=== PATIENT | female | born 1975 | race Caucasian/White ===

== ENCOUNTER 2017-06-24 16:49 | Emergency (ER) | payer OTHER ==
[~2017-06-24] VITALS: Wt 89.4 kg
[~2017-06-24 16:49] MED LIST: AMBIEN10 M1 PO; AMOXICILLIN500 M2 PO; AMOXIL875 MG PO; AUGMENTIN 500500 M1 PO; BENADRYL ALLERG25 M5 PO; CEPHALEXIN500 M1 PO; CLINDAMYCIN HC300 MG PO; COMPAZINE10 MG PO; FLEXERIL10 MG PO; GOOD NEIGHBOR L10 MG PO; IBU800 MG PO; KEFLEX500 MG PO; LEVOFLOXACIN500 MG PO; MEDROL DOSEPAK4 MG PO; NAPROSYN500 MG PO; NEURONTIN100 MG PO; NEXIUM40 MG PO; NORCO 7.5-3251 EACH PO; OGEN PO; PRAVACHOL40 MG PO; PREDNICOT20 MG PO; PREDNISONE10 MG PO; PREDNISONE50 MG PO; PREVACID30 M1 PO; PROTONIX40 MG PO; SYMBICORT1 AE1 INH; SYNTHROID0.025 MG PO; SYNTHROID25 MCG PO; TESSALON PERLE200 MG PO; TRAMADOL50 MG PO; TRAZODONE50 MG PO; ULTRAM50 MG PO; VIBRA-TAB100 MG PO; VICODIN 500 MG-1 TAB PO; XOPENEX HF0.045 MG/A IH; ZITHROMAX Z PA250 MG PO; ZITHROMAX Z-PA250 MG PO; ZOFRAN4 MG PO; [UNRECOGNIZED DRUG - REMARK]; [UNRECOGNIZED DRUG - REMARK]; [UNRECOGNIZED DRUG - REMARK]; [UNRECOGNIZED DRUG - REMARK]
[2017-06-24] MEDS ORDERED: PROAIR HFA8.5 GM INH (18:42)
== END 2017-06-24 18:45 | disposition left against medical advice (07) ==
LOC: ED 16:49
DX: M79.671 Pain in right foot (principal); K21.9 Gastro-esophageal reflux disease without esophagitis; Z79.899 Other long term (current) drug therapy

== ENCOUNTER 2017-09-01 04:33 | Emergency (ER) | payer OTHER ==
[~2017-09-01] VITALS: Ht 167.6 cm; Wt 84.8 kg
[~2017-09-01 04:33] MED LIST changes: -PREVACID30 M1 PO; +PREVACID30 M3 PO; +PROAIR HFA8.5 GM INH
[2017-09-01] MEDS ORDERED: PYRIDIUM200 M1 PO ×2 (05:04→05:37)
[2017-09-01] MEDS ORDERED: AMOXICILLIN500 M2 PO ×2 (05:04→05:37)
[2017-09-01 05:06] LABS: BILIRUBIN NEGATIVE (NEGATIVE); BLOOD 3+ (NEGATIVE); CLARITY SL CLOUDY (CLEAR); COLOR YELLOW (YELLOW); GLUCOSE NEGATIVE (NEGATIVE); KETONE TRACE (NEGATIVE); LEUKO ESTERASE TRACE (NEGATIVE); NITRITE POSITIVE (NEGATIVE); SPECIFIC GRAVITY >= 1.030 (1.005-1.030); UROBILINOGEN 0.2 E.U./dl (0.2-1.0)
[2017-09-01 05:13] LABS: BACTERIA 2+; EPITHELIAL CELLS 0-2; RBC 21-30 rbc/hpf (0-2); WBC 16-20 wbc/hpf (0-5)
[2017-09-14] MEDS ORDERED: PRAVASTATIN PO (09:22)
[2017-09-14] MEDS ORDERED: AMBIEN5 MG PO (09:23)
[2017-09-14] MEDS ORDERED: SYNTHROID PO (09:23)
== END 2017-09-01 05:42 | disposition home or self-care (01) ==
LOC: ED 04:33
PROVIDERS: Emergency Medicine Emergency Medical Services
DX: N39.0 Urinary tract infection, site not specified (principal); K21.9 Gastro-esophageal reflux disease without esophagitis; F17.200 Nicotine dependence, unspecified, uncomplicated; Z90.710 Acquired absence of both cervix and uterus; Z79.899 Other long term (current) drug therapy

== ENCOUNTER → 2017-09-14 | Outpatient (CLI) | payer OTHER ==
[~2017-09-14] MED LIST changes: +AMBIEN5 MG PO; +PRAVASTATIN PO; +PYRIDIUM200 M1 PO; +SYNTHROID PO
--- NOTE | ~2017-09-14 | ST ---
[place], [place] EXERCISE STRESS TEST REPORT NAME: [facility] [id number] UNIT #: [id number] ROOM: DOCTOR: RENETTA MCGEE MD BIRTHDATE: [birth year] DOS: 09/14/2017 EXERCISE STRESS TEST Referred by Dr. Jaz Gibbs. INDICATIONS: Atypical chest pain, dyspnea, family history of coronary artery disease. PROCEDURE: The patient walked on a full Louis protocol stress test for 6 minutes and stopped for fatigue. She did not reproduce her chest pain. She achieved a maximum heart rate of 154, which represented 87% of her maximum predicted heart rate at a workload of 7 mets. Her resting heart rate of 50 emily to 154. The resting blood pressure of 120/74, increased to 160/72. She had no diagnostic electrocardiographic changes or arrhythmias. Recovery phase was normal. IMPRESSION: 1. Adequate exercise capacity, which is somewhat limited for the patient's age. Exercise terminated due to fatigue. The patient did not have any chest pain or diagnostic electrocardiographic changes. 2. Che treadmill score 6 consistent with low risk for hard cardiac events. 3. Somewhat limited exercise capacity for the patient's age, probably related to underlying lung disease, deconditioning, etc. RENETTA MCGEE MD CM:STRESS:EXERCISE STRESS TEST REPORT [id number] RENETTA MCGEE MD
[2017-09-14 09:45] LABS: BASO % 0.8 % (0.0-1.0); EOS # 0.1 10*3/uL (0.0-0.4); EOS % 2.7 % (1.0-4.0); HEMATOCRIT 40.7 % (37.0-47.0); HEMOGLOBIN 13.8 g/dl (12.0-16.0); LYMPH # 1.5 10*3/uL (1.3-4.4); LYMPH % 29.1 % (27.0-41.0); MEAN CORPUSCULAR HGB 30.5 pg (27.0-31.0); MEAN CORPUSCULAR HGB CONC 33.9 g/dl (33.0-37.0); MEAN PLATELET VOLUME 9.5 fl (9.6-12.3); MONO # 0.5 10*3/uL (0.1-1.0); MONO % 8.6 % (3.0-9.0); NEUT # 3.1 10*3/uL (2.3-7.9); NEUT % 58.6 % (47.0-73.0); PLATELET COUNT AUTOMATED 237 10*3/uL (130-400); RED BLOOD COUNT 4.52 10*6/uL (4.10-5.10); RED CELL DISTRI WIDTH 12.1 % (0-14.5); WHITE BLOOD COUNT 5.2 10*3/uL (4.8-10.8)
[2017-09-14 10:11] LABS: ALBUMIN 3.8 gm/dl (3.1-4.5); ALKALINE PHOSPHATASE 58 U/L (45-117); BUN 8 mg/dl (7-24); CHLORIDE 107 mmol/L (98-107); CHOLESTEROL 168 mg/dL (<200); HDL CHOLESTEROL 57 mg/dl (40-60); LDL CHOLESTEROL 90 mg/dL (9-159); SGOT/AST 7 IU/L (3-35); SGPT/ALT 15 U/L (12-78); SODIUM 143 mmol/L (136-145); TOTAL PROTEIN 6.8 gm/dL (6.4-8.2); TRIGLYCERIDES 103 mg/dl (<150); VLDL CHOLESTEROL 21 mg/dL (6-40)
== END | disposition home or self-care (01) ==
LOC: CARD 09-07 09:30 → LAB 01:27 → CARD 09:30
PROVIDERS: Internal Medicine
DX: I20.9 Angina pectoris, unspecified (principal); E78.2 Mixed hyperlipidemia; E03.9 Hypothyroidism, unspecified

== ENCOUNTER 2017-10-20 07:43 | Emergency (ER) | payer OTHER ==
[~2017-10-20] VITALS: Wt 68.0 kg
== END 2017-10-20 09:45 | disposition home or self-care (01) ==
LOC: ED 07:43
DX: S29.9XXA Unspecified injury of thorax, initial encounter (principal); K21.9 Gastro-esophageal reflux disease without esophagitis; Z79.890 Hormone replacement therapy; Z79.899 Other long term (current) drug therapy; Z90.710 Acquired absence of both cervix and uterus; Z90.49 Acquired absence of other specified parts of digestive tract; X50.9XXA Other and unspecified overexertion or strenuous movements or postures, initial encounter; Y93.89 Activity, other specified; Y92.89 Other specified places as the place of occurrence of the external cause; Y99.8 Other external cause status

== ENCOUNTER 2017-10-26 12:09 | Emergency (ER) | payer OTHER ==
[~2017-10-26] VITALS: Ht 165.1 cm; Wt 81.6 kg
[2017-10-26] MEDS ORDERED: Motrin,Rufen800 MG PO (14:29)
[2017-10-26] MEDS ORDERED: PERCOCET 5-3251 EACH PO (14:30)
== END 2017-10-26 14:34 | disposition home or self-care (01) ==
LOC: ED 12:09
DX: S20.212A Contusion of left front wall of thorax, initial encounter (principal); K21.9 Gastro-esophageal reflux disease without esophagitis; F17.200 Nicotine dependence, unspecified, uncomplicated; Z79.890 Hormone replacement therapy; Z90.710 Acquired absence of both cervix and uterus; Z90.49 Acquired absence of other specified parts of digestive tract; X50.1XXA Overexertion from prolonged static or awkward postures, initial encounter; Y93.89 Activity, other specified; Y92.89 Other specified places as the place of occurrence of the external cause; Y99.8 Other external cause status

== ENCOUNTER 2017-11-20 10:58 | Emergency (ER) | payer OTHER ==
[~2017-11-20] VITALS: Wt 86.2 kg
[~2017-11-20 10:58] MED LIST changes: +Motrin,Rufen800 MG PO; +PERCOCET 5-3251 EACH PO
[2017-11-20] MEDS ORDERED: Zofran4 MG SL ×2 (11:23→11:32)
[2017-11-20] MEDS ORDERED: PENICILLIN VK500 MG PO ×2 (11:23→11:32)
[2017-11-20] MEDS ORDERED: NAPROSYN500 MG PO ×2 (11:23→11:32)
== END 2017-11-20 11:44 | disposition home or self-care (01) ==
LOC: ED 10:58
DX: M27.3 Alveolitis of jaws (principal); Z79.899 Other long term (current) drug therapy; Z90.710 Acquired absence of both cervix and uterus; Z90.49 Acquired absence of other specified parts of digestive tract

== ENCOUNTER 2018-02-05 07:58 | Emergency (ER) | payer OTHER ==
[~2018-02-05] VITALS: Ht 167.6 cm; Wt 88.0 kg
[~2018-02-05 07:58] MED LIST changes: +PENICILLIN VK500 MG PO; +Zofran4 MG SL
[2018-02-05] MEDS ORDERED: PREDNISONE50 MG PO (08:16)
[2018-02-05] MEDS ORDERED: DIFLUCAN150 MG PO (08:16)
[2018-02-05] MEDS ORDERED: DOXYCYCLINE100 M3 PO (08:16)
== END 2018-02-05 08:30 | disposition home or self-care (01) ==
LOC: ED 07:58
DX: J20.9 Acute bronchitis, unspecified (principal); K21.9 Gastro-esophageal reflux disease without esophagitis; Z79.2 Long term (current) use of antibiotics; Z79.899 Other long term (current) drug therapy; Z90.710 Acquired absence of both cervix and uterus; Z90.49 Acquired absence of other specified parts of digestive tract

== ENCOUNTER → 2018-02-06 | Outpatient (CLI) | payer OTHER ==
[~2018-02-06] MED LIST changes: +DIFLUCAN150 MG PO; +DOXYCYCLINE100 M3 PO; +HYDROCODONE-AC1 EAC1 PO; +Ipratropium Brom3 ML NEB; +ROBITUSSIN DM 105 ML PO
== END | disposition home or self-care (01) ==
LOC: RAD 11:28
DX: M79.675 Pain in left toe(s) (principal); R07.9 Chest pain, unspecified; R05 Cough; R06.02 Shortness of breath; W22.8XXA Striking against or struck by other objects, initial encounter; Y93.89 Activity, other specified; Y92.89 Other specified places as the place of occurrence of the external cause; Y99.8 Other external cause status

== ENCOUNTER 2018-02-08 09:49 | Inpatient (IN) | payer OTHER ==
[~2018-02-08] VITALS: Ht 167.6 cm; Wt 85.3 kg
[~2018-02-08 09:49] MED LIST changes: -HYDROCODONE-AC1 EAC1 PO; -Ipratropium Brom3 ML NEB; -ROBITUSSIN DM 105 ML PO
[2018-02-08 09:53] VITALS: BP 154/72
[2018-02-08 10:18] LABS: BASO % 0.6 % (0.0-1.0); EOS % 0.6 % (1.0-4.0); HEMATOCRIT 40.4 % (37.0-47.0); HEMOGLOBIN 14.1 g/dl (12.0-16.0); LYMPH # 2.4 10*3/uL (1.3-4.4); LYMPH % 35.3 % (27.0-41.0); MEAN CORPUSCULAR HGB 31.1 pg (27.0-31.0); MEAN CORPUSCULAR HGB CONC 34.9 g/dl (33.0-37.0); MEAN PLATELET VOLUME 9.2 fl (9.6-12.3); MONO # 0.5 10*3/uL (0.1-1.0); MONO % 7.4 % (3.0-9.0); NEUT # 3.8 10*3/uL (2.3-7.9); NEUT % 55.8 % (47.0-73.0); PLATELET COUNT AUTOMATED 245 10*3/uL (130-400); RED BLOOD COUNT 4.54 10*6/uL (4.10-5.10); WHITE BLOOD COUNT 6.9 10*3/uL (4.8-10.8)
[2018-02-08 10:36] LABS: ALBUMIN 3.6 gm/dl (3.1-4.5); ALKALINE PHOSPHATASE 89 U/L (45-117); BUN 12 mg/dl (7-24); CHLORIDE 106 mmol/L (98-107); CREATININE 0.81 mg/dL (0.55-1.02); POTASSIUM 3.5 mmol/L (3.5-5.1); SGOT/AST 14 IU/L (3-35); SGPT/ALT 26 U/L (12-78); SODIUM 142 mmol/L (136-145); TOTAL PROTEIN 7.4 gm/dL (6.4-8.2)
[2018-02-08 11:03] LABS: BILIRUBIN NEGATIVE (NEGATIVE); BLOOD NEGATIVE (NEGATIVE); CLARITY CLEAR (CLEAR); COLOR YELLOW (YELLOW); GLUCOSE NEGATIVE (NEGATIVE); KETONE NEGATIVE (NEGATIVE); LEUKO ESTERASE NEGATIVE (NEGATIVE); NITRITE NEGATIVE (NEGATIVE); SPECIFIC GRAVITY <= 1.005 (1.005-1.030); UROBILINOGEN 0.2 E.U./dl (0.2-1.0)
[2018-02-08 11:08] VITALS: BP 131/63
[2018-02-08 11:11] LABS: BACTERIA TRACE
[2018-02-08 11:12] LABS: WBC 0-2 wbc/hpf (0-5)
[2018-02-08 12:00] VITALS: BP 128/80; BP 146/91
--- NOTE | 2018-02-08 12:00 | NUR ---
Time: 1200 A 42 year old FEMALE admitted to 5E under services of LEONILA SANDERS DO. Pt. arrived via bed from ER. Chief complaint: BRONCHITIS. 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 HEALTHY LIFESTYLES GUIDELINES REVIEWED AND SIGNED. PT BELONGINGS ACCOUNTED FOR. WILL CONTINUE TO MONITOR DIANA MERCADO
[2018-02-08 16:00] VITALS: BP 145/99
[2018-02-08 20:00] VITALS: BP 140/70
--- NOTE | 2018-02-08 20:39 | NUR ---
PATIENT REQUESTING HER NIGHT TIME MEDICATION AND A PAIN PILL. MEDICATED WITH PRN NORCO FOR CHEST PAIN DUE TO HER COUGHING AND AMBIEN TO HELP SLEEP. WILL CHECK EFFECTIVENESS.
[2018-02-09] VITALS: BP 114/62
[2018-02-09 06:51] LABS: BASO % 0.1 % (0.0-1.0); EOS % 0.3 % (1.0-4.0); HEMATOCRIT 38.1 % (37.0-47.0); HEMOGLOBIN 13.3 g/dl (12.0-16.0); LYMPH # 1.3 10*3/uL (1.3-4.4); LYMPH % 12.9 % (27.0-41.0); MEAN CELL VOLUME 90.3 fl (81.0-99.0); MEAN CORPUSCULAR HGB 31.5 pg (27.0-31.0); MEAN CORPUSCULAR HGB CONC 34.9 g/dl (33.0-37.0); MEAN PLATELET VOLUME 9.9 fl (9.6-12.3); MONO # 0.6 10*3/uL (0.1-1.0); MONO % 5.8 % (3.0-9.0); NEUT # 8.2 10*3/uL (2.3-7.9); NEUT % 80.5 % (47.0-73.0); PLATELET COUNT AUTOMATED 252 10*3/uL (130-400); RED BLOOD COUNT 4.22 10*6/uL (4.10-5.10); RED CELL DISTRI WIDTH 12.1 % (0-14.5); WHITE BLOOD COUNT 10.2 10*3/uL (4.8-10.8)
[2018-02-09 07:11] LABS: BUN 11 mg/dl (7-24); CREATININE 0.62 mg/dL (0.55-1.02); SODIUM 142 mmol/L (136-145)
[2018-02-09 07:12] LABS: ALBUMIN 3.5 gm/dl (3.1-4.5); ALKALINE PHOSPHATASE 80 U/L (45-117); CHLORIDE 105 mmol/L (98-107); CHOLESTEROL 178 mg/dL (<200); FREE T4 1.14 ng/dl (0.76-1.46); HDL CHOLESTEROL 61 mg/dl (40-60); LDL CHOLESTEROL 106 mg/dL (9-159); PHOSPHOROUS 3.4 mg/dL (2.5-4.9); SGOT/AST 9 IU/L (3-35); SGPT/ALT 25 U/L (12-78); TOTAL PROTEIN 6.9 gm/dL (6.4-8.2); TRIGLYCERIDES 57 mg/dl (<150); VLDL CHOLESTEROL 11 mg/dL (6-40)
[2018-02-09 07:16] LABS: THYROID STIM HORMONE (HS) 0.326 uIU/ml (0.358-4.75)
[2018-02-09 08:00] VITALS: BP 130/60
[2018-02-09 11:09] LABS: VITAMIN D, 25-HYDROXY 15.7 ng/mL (30-100)
[2018-02-09 12:00] VITALS: BP 134/66
--- NOTE | 2018-02-09 13:11 | NUR ---
C/O CHEST PAIN WHEN COUGHING OF 6/10. NORCO GIVEN AT THIS TIME. WILL CONT TO MONITOR. CALL LIGHT IN REACH.
[2018-02-09 16:00] VITALS: BP 131/83
[2018-02-09 20:00] VITALS: BP 140/71
--- NOTE | 2018-02-09 20:14 | NUR ---
24 HR chart check completed.
--- NOTE | 2018-02-09 21:28 | NUR ---
C/O 08/14 CHEST/RIB PAIN PAIN. INCREASES WITH COUGH. DESCRIBES THE PAIN SHARP. MEDICATED WITH NORCO ORDERED AND PER PATIENT REQUEST. MEDICATED WITH AMBIEN FOR COMPLAINTS OF INSOMNIA.
--- NOTE | 2018-02-09 22:28 | NUR ---
PATIENT ASLEEP. NO SIGNS OF PAIN OR INSOMNIA. KRISTIE AND ANTONIO EFFECTIVE.
[2018-02-10] VITALS: BP 124/73
--- NOTE | 2018-02-10 05:45 | NUR ---
C/O 5/10 LEFT CHEST PAIN WITH COUGHING. MEDICATED WITH PRN NORCO PER PATIENT REQUEST.
--- NOTE | 2018-02-10 06:45 | NUR ---
DENIES PAIN. NORCO EFFECTIVE.
[2018-02-10 08:00] VITALS: BP 126/72
--- NOTE | 2018-02-10 08:50 | NUR ---
VINCENT HERE TO ASSESS PATIENT AND DISCUSS PLAN OF CARE
[2018-02-10] MEDS ORDERED: Ipratropium Brom3 ML NEB (08:56)
[2018-02-10] MEDS ORDERED: HYDROCODONE-AC1 EAC1 PO (08:56)
[2018-02-10] MEDS ORDERED: PREDNISONE10 MG PO (08:56)
[2018-02-10] MEDS ORDERED: LEVOFLOXACIN500 MG PO (08:57)
[2018-02-10] MEDS ORDERED: ROBITUSSIN DM 105 ML PO (08:57)
--- NOTE | 2018-02-10 09:40 | NUR ---
PATIENT AMBULATED AROUND HALLWAY PER REQUEST OF VINCENT. PATIENT C/O FEELING LIGHTHEADED AFTER AMBULATION BUT AMBULATED WELL. VINCENT INFORMED, PATIENT OK FOR D/C
--- NOTE | 2018-02-10 09:58 | NUR ---
24 HR chart check completed.
--- NOTE | 2018-02-10 10:30 | NUR ---
Discharge instructions reviewed with patient/family. Patient receptive and verbalizes understanding. Written instructions given to patient/family. PATIENT OFFERED WC FOR D/C, DECLINED. AMBULATED OFF FLOOR IN CARE OF FAMILY. SCRIPTS PROVIDED WENDY VAZQUEZ
== END 2018-02-10 10:30 | disposition home or self-care (01) | DRG 202 ==
LOC: ED 09:49 → 5E 11:00 → EDHOLD 11:00 → 5E 11:40
PROVIDERS: Nurse Practitioner Family; Registered Nurse; ADMIT Internal Medicine
DX: J20.9 Acute bronchitis, unspecified (principal); J18.9 Pneumonia, unspecified organism; E44.0 Moderate protein-calorie malnutrition; K21.9 Gastro-esophageal reflux disease without esophagitis; R42 Dizziness and giddiness; E03.9 Hypothyroidism, unspecified; Z87.440 Personal history of urinary (tract) infections; Z90.49 Acquired absence of other specified parts of digestive tract; Z90.710 Acquired absence of both cervix and uterus; Z82.49 Family history of ischemic heart disease and other diseases of the circulatory system; Z83.3 Family history of diabetes mellitus; Z80.9 Family history of malignant neoplasm, unspecified; Z79.899 Other long term (current) drug therapy; Z68.30 Body mass index [BMI] 30.0-30.9, adult

== ENCOUNTER → 2018-04-22 | Outpatient (CLI) | payer OTHER ==
[~2018-04-22] MED LIST changes: +HYDROCODONE-AC1 EAC1 PO; +Ipratropium Brom3 ML NEB; +ROBITUSSIN DM 105 ML PO
[2018-04-22 12:08] LABS: HEMATOCRIT 41.9 % (37.0-47.0); HEMOGLOBIN 13.9 g/dl (12.0-16.0); MEAN CELL VOLUME 90.7 fl (81.0-99.0); MEAN CORPUSCULAR HGB 30.1 pg (27.0-31.0); MEAN CORPUSCULAR HGB CONC 33.2 g/dl (33.0-37.0); MEAN PLATELET VOLUME 9.3 fl (9.6-12.3); RED BLOOD COUNT 4.62 10*6/uL (4.10-5.10); RED CELL DISTRI WIDTH 12.7 % (0-14.5); WHITE BLOOD COUNT 5.4 10*3/uL (4.8-10.8)
[2018-04-22 12:45] LABS: ALBUMIN 4.1 gm/dl (3.1-4.5); ALKALINE PHOSPHATASE 70 U/L (45-117); BUN 12 mg/dl (7-24); CHLORIDE 106 mmol/L (98-107); CHOLESTEROL 215 mg/dL (<200); CREATININE 0.73 mg/dL (0.55-1.02); HDL CHOLESTEROL 88 mg/dl (40-60); LDL CHOLESTEROL 111 mg/dL (9-159); POTASSIUM 4.1 mmol/L (3.5-5.1); SGOT/AST 9 IU/L (3-35); SGPT/ALT 19 U/L (12-78); SODIUM 140 mmol/L (136-145); TRIGLYCERIDES 79 mg/dl (<150); VLDL CHOLESTEROL 16 mg/dL (6-40)
[2018-04-24 00:04] LABS: DILUTE PROTHROMBIN TIME 45.1 sec (0.0-55.0); DPT CONFIRM RATIO 1.12 Ratio (0.00-1.40); LUPUS DRVVT 32.1 sec (0.0-47.0); LUPUS REFLEX INTERPRETATION Comment: (.); PTT-LA 33.2 sec (0.0-51.9); THROMBIN TIME 20.1 sec (0.0-23.0)
== END | disposition home or self-care (01) ==
LOC: LAB 10:50
PROVIDERS: Registered Nurse Flight
DX: M54.2 Cervicalgia (principal); M54.5 Low back pain; E03.9 Hypothyroidism, unspecified; E78.5 Hyperlipidemia, unspecified; M79.641 Pain in right hand

== ENCOUNTER 2018-09-27 03:15 | Emergency (ER) | payer OTHER ==
[~2018-09-27] VITALS: Ht 167.6 cm; Wt 91.2 kg
[2018-09-27 04:06] LABS: BASO # 0.1 10*3/uL (0.0-0.1); BASO % 0.6 % (0.0-1.0); EOS # 0.1 10*3/uL (0.0-0.4); EOS % 1.1 % (1.0-4.0); HEMATOCRIT 40.5 % (37.0-47.0); HEMOGLOBIN 13.8 g/dl (12.0-16.0); LYMPH # 1.6 10*3/uL (1.3-4.4); LYMPH % 19.2 % (27.0-41.0); MEAN CELL VOLUME 91.6 fl (81.0-99.0); MEAN CORPUSCULAR HGB 31.2 pg (27.0-31.0); MEAN CORPUSCULAR HGB CONC 34.1 g/dl (33.0-37.0); MONO # 0.5 10*3/uL (0.1-1.0); MONO % 6.3 % (3.0-9.0); NEUT % 72.4 % (47.0-73.0); PLATELET COUNT AUTOMATED 235 10*3/uL (130-400); RED BLOOD COUNT 4.42 10*6/uL (4.10-5.10); RED CELL DISTRI WIDTH 12.6 % (0-14.5); WHITE BLOOD COUNT 8.3 10*3/uL (4.8-10.8)
[2018-09-27 04:21] LABS: ALBUMIN 3.9 gm/dl (3.1-4.5); ALKALINE PHOSPHATASE 75 U/L (45-117); BUN 14 mg/dl (7-24); CHLORIDE 107 mmol/L (98-107); CREATININE 0.81 mg/dL (0.55-1.02); LIPASE 99 U/L (73-393); POTASSIUM 3.7 mmol/L (3.5-5.1); SGOT/AST 10 IU/L (3-35); SGPT/ALT 23 U/L (12-78); SODIUM 139 mmol/L (136-145); TOTAL PROTEIN 7.1 gm/dL (6.4-8.2)
[2018-09-27 05:51] LABS: BILIRUBIN NEGATIVE (NEGATIVE); BLOOD NEGATIVE (NEGATIVE); CLARITY CLEAR (CLEAR); COLOR YELLOW (YELLOW); GLUCOSE NEGATIVE (NEGATIVE); KETONE TRACE (NEGATIVE); LEUKO ESTERASE TRACE (NEGATIVE); NITRITE NEGATIVE (NEGATIVE); SPECIFIC GRAVITY 1.015 (1.005-1.030); UROBILINOGEN 0.2 E.U./dl (0.2-1.0)
[2018-09-27] MEDS ORDERED: Motrin,Rufen800 MG PO (05:59)
[2018-09-27] MEDS ORDERED: CYCLOBENZAPRINE5 M3 PO (05:59)
== END 2018-09-27 06:40 | disposition home or self-care (01) ==
LOC: ED 03:15
PROVIDERS: Emergency Medicine Emergency Medical Services
DX: S39.012A Strain of muscle, fascia and tendon of lower back, initial encounter (principal); K21.9 Gastro-esophageal reflux disease without esophagitis; E03.9 Hypothyroidism, unspecified; Z79.899 Other long term (current) drug therapy; X58.XXXA Exposure to other specified factors, initial encounter; Y93.89 Activity, other specified; Y92.89 Other specified places as the place of occurrence of the external cause; Y99.8 Other external cause status

== ENCOUNTER 2019-05-02 06:01 | Observation (INO) | payer OTHER ==
[~2019-05-02] VITALS: Ht 167.6 cm; Wt 90.7 kg
[~2019-05-02 06:01] MED LIST changes: +CYCLOBENZAPRINE5 M3 PO
[2019-05-02 06:08] VITALS: BP 153/98
[2019-05-02 06:23] VITALS: BP 148/89
[2019-05-02 06:59] LABS: BILIRUBIN NEGATIVE (NEGATIVE); BLOOD NEGATIVE (NEGATIVE); CLARITY SL CLOUDY (CLEAR); COLOR YELLOW (YELLOW); GLUCOSE NEGATIVE (NEGATIVE); KETONE NEGATIVE (NEGATIVE); LEUKO ESTERASE NEGATIVE (NEGATIVE); NITRITE NEGATIVE (NEGATIVE); SPECIFIC GRAVITY 1.015 (1.005-1.030); UROBILINOGEN 0.2 E.U./dl (0.2-1.0)
[2019-05-02 07:02] LABS: BACTERIA 2+; EPITHELIAL CELLS 20-25; WBC 0-2 wbc/hpf (0-5)
[2019-05-02 07:17] VITALS: BP 140/94
[2019-05-02 07:35] LABS: BASO % 0.3 % (0.0-1.0); EOS # 0.1 10*3/uL (0.0-0.4); EOS % 0.5 % (1.0-4.0); HEMATOCRIT 44.4 % (37.0-47.0); HEMOGLOBIN 15.3 g/dl (12.0-16.0); LYMPH # 0.9 10*3/uL (1.3-4.4); MEAN CELL VOLUME 91.4 fl (81.0-99.0); MEAN CORPUSCULAR HGB 31.5 pg (27.0-31.0); MEAN CORPUSCULAR HGB CONC 34.5 g/dl (33.0-37.0); MEAN PLATELET VOLUME 9.4 fl (9.6-12.3); MONO # 0.6 10*3/uL (0.1-1.0); MONO % 6.3 % (3.0-9.0); NEUT # 8.2 10*3/uL (2.3-7.9); NEUT % 83.6 % (47.0-73.0); PLATELET COUNT AUTOMATED 221 10*3/uL (130-400); RED BLOOD COUNT 4.86 10*6/uL (4.10-5.10); RED CELL DISTRI WIDTH 12.8 % (0-14.5); WHITE BLOOD COUNT 9.8 10*3/uL (4.8-10.8)
[2019-05-02 07:46] LABS: ALKALINE PHOSPHATASE 86 U/L (45-117); BUN 10 mg/dl (7-24); CHLORIDE 108 mmol/L (98-107); POTASSIUM 3.9 mmol/L (3.5-5.1); SGOT/AST 19 IU/L (3-35); SGPT/ALT 28 U/L (12-78); SODIUM 138 mmol/L (136-145); TOTAL PROTEIN 7.7 gm/dL (6.4-8.2)
[2019-05-02] MEDS ORDERED: DOXYCYCLINE100 M3 PO (11:45)
== END 2019-05-02 12:51 | disposition home or self-care (01) ==
LOC: ED 06:01 → 5E 09:22 → EDHOLD 09:22 → 5E 09:47
PROVIDERS: Emergency Medicine; ADMIT Internal Medicine
DX: R50.9 Fever, unspecified (principal); J06.9 Acute upper respiratory infection, unspecified; J44.9 Chronic obstructive pulmonary disease, unspecified; K21.9 Gastro-esophageal reflux disease without esophagitis; E03.9 Hypothyroidism, unspecified; R00.0 Tachycardia, unspecified; R06.82 Tachypnea, not elsewhere classified; R65.10 Systemic inflammatory response syndrome (SIRS) of non-infectious origin without acute organ dysfunction; G47.00 Insomnia, unspecified

== ENCOUNTER 2019-08-10 12:07 | Emergency (ER) | payer OTHER ==
[~2019-08-10] VITALS: Ht 167.6 cm; Wt 90.7 kg
[2019-08-10 12:41] LABS: BASO # 0.1 10*3/uL (0.0-0.1); BASO % 0.8 % (0.0-1.0); EOS # 0.1 10*3/uL (0.0-0.4); EOS % 0.8 % (1.0-4.0); HEMATOCRIT 42.6 % (37.0-47.0); LYMPH # 1.7 10*3/uL (1.3-4.4); MEAN CELL VOLUME 88.6 fl (81.0-99.0); MEAN PLATELET VOLUME 9.3 fl (9.6-12.3); MONO # 0.5 10*3/uL (0.1-1.0); NEUT # 3.8 10*3/uL (2.3-7.9); NEUT % 62.1 % (47.0-73.0); PLATELET COUNT AUTOMATED 280 10*3/uL (130-400); RED BLOOD COUNT 4.81 10*6/uL (4.10-5.10); RED CELL DISTRI WIDTH 11.7 % (0-14.5); WHITE BLOOD COUNT 6.1 10*3/uL (4.8-10.8)
[2019-08-10 12:55] LABS: ALBUMIN 4.4 gm/dl (3.1-4.5); ALKALINE PHOSPHATASE 68 U/L (45-117); BUN 9 mg/dl (7-24); CHLORIDE 114 mmol/L (98-107); CREATININE 0.76 mg/dL (0.55-1.02); LIPASE 276 U/L (73-393); POTASSIUM 3.5 mmol/L (3.5-5.1); SGOT/AST 18 IU/L (3-35); SGPT/ALT 29 U/L (12-78); SODIUM 141 mmol/L (136-145); TOTAL PROTEIN 7.6 gm/dL (6.4-8.2)
[2019-08-10] MEDS ORDERED: ZOFRAN4 MG PO (14:28)
[2019-08-10] MEDS ORDERED: LOMOTIL 2.5-0.1 EACH PO (14:29)
== END 2019-08-10 14:44 | disposition home or self-care (01) ==
LOC: ED 12:07
PROVIDERS: Physician Assistant
DX: R11.2 Nausea with vomiting, unspecified (principal); R19.7 Diarrhea, unspecified; K21.9 Gastro-esophageal reflux disease without esophagitis; J45.909 Unspecified asthma, uncomplicated; Z79.899 Other long term (current) drug therapy

== ENCOUNTER → 2020-10-06 | Outpatient (CLI) | payer OTHER ==
[~2020-10-06] MED LIST changes: +LOMOTIL 2.5-0.1 EACH PO
[2020-10-06 16:31] LABS: BILIRUBIN Negative (Negative); BLOOD Negative (Negative); CLARITY Clear (Clear); COLOR Dark Yellow (Yellow); GLUCOSE Negative (Negative); KETONE Negative (Negative); LEUKO ESTERASE Negative (Negative); NITRITE Positive (Negative)
[2020-10-06 16:38] LABS: BACTERIA TRACE; RBC 0-2 rbc/hpf (0-2); WBC 0-2 wbc/hpf (0-5)
== END | disposition home or self-care (01) ==
LOC: LAB 15:56
PROVIDERS: ATTEND Internal Medicine
DX: R30.0 Dysuria (principal)

== ENCOUNTER 2020-12-08 14:04 | Emergency (ER) | payer OTHER ==
[~2020-12-08] VITALS: Ht 170.2 cm; Wt 88.5 kg
== END 2020-12-08 18:29 | disposition home or self-care (01) ==
LOC: ED 14:04
DX: R05.9 Cough, unspecified (principal); R09.81 Nasal congestion; Z79.899 Other long term (current) drug therapy

== ENCOUNTER → 2021-01-04 | Outpatient (CLI) | payer OTHER | END | disposition home or self-care (01) | LOC: MAMMO 11-16 14:30 → US 12-09 10:30 → MAMMO 13:54 | PROVIDERS: ATTEND Nurse Practitioner Women's Health | DX: N64.4 Mastodynia (principal) ==

== ENCOUNTER 2021-01-25 11:07 | Emergency (ER) | payer OTHER ==
[~2021-01-25] VITALS: Wt 79.4 kg
== END 2021-01-25 14:20 | disposition home or self-care (01) ==
LOC: ED 11:07
DX: J01.90 Acute sinusitis, unspecified (principal); Z20.822 Contact with and (suspected) exposure to COVID-19

== ENCOUNTER → 2021-01-31 | Outpatient (CLI) | payer OTHER ==
[2021-01-31 14:21] LABS: ALKALINE PHOSPHATASE 69 U/L (45-117); BUN 18 mg/dl (7-24); CHLORIDE 107 mmol/L (98-107); CHOLESTEROL 176 mg/dL (<200); CREATININE 0.74 mg/dL (0.55-1.02); LDL CHOLESTEROL 78 mg/dL (9-159); POTASSIUM 4.2 mmol/L (3.5-5.1); SGOT/AST 27 IU/L (3-35); SGPT/ALT 46 U/L (12-78); SODIUM 138 mmol/L (136-145); TOTAL PROTEIN 7.6 gm/dL (6.4-8.2); TRIGLYCERIDES 119 mg/dl (<150)
== END | disposition home or self-care (01) ==
LOC: LAB 13:41
PROVIDERS: ATTEND Internal Medicine
DX: E03.9 Hypothyroidism, unspecified (principal); E78.5 Hyperlipidemia, unspecified

== ENCOUNTER → 2021-02-06 | Outpatient (CLI) | payer OTHER | LOC: LAB 11:49 | PROVIDERS: ATTEND Internal Medicine | DX: R73.09 Other abnormal glucose (principal) ==

== ENCOUNTER 2021-03-24 11:03 | Emergency (ER) | payer OTHER ==
[~2021-03-24] VITALS: Wt 93.0 kg
[2021-03-24] MEDS ORDERED: MONTELUKAST SOD10 MG PO (11:21)
[2021-03-24] MEDS ORDERED: MELOXICAM15 MG PO (11:21)
[2021-03-24] MEDS ORDERED: CETIRIZINE HYDR10 MG PO (11:21)
[2021-03-24] MEDS ORDERED: PANTOPRAZOLE SO40 MG PO (11:21)
[2021-03-24] MEDS ORDERED: VENT7GM INH (11:22)
[2021-03-24] MEDS ORDERED: FLUTICASONE-SA1 EAC3 INH (11:22)
[2021-03-24 12:43] LABS: BASO % 0.2 % (0.0-1.0); EOS # 0.1 10*3/uL (0.0-0.4); EOS % 1.1 % (1.0-4.0); HEMATOCRIT 42.4 % (37.0-47.0); LYMPH % 20.7 % (27.0-41.0); MEAN CELL VOLUME 91.6 fl (81.0-99.0); MEAN CORPUSCULAR HGB 30.7 pg (27.0-31.0); MEAN CORPUSCULAR HGB CONC 33.5 g/dl (33.0-37.0); MEAN PLATELET VOLUME 8.7 fl (9.6-12.3); MONO # 0.4 10*3/uL (0.1-1.0); MONO % 7.5 % (3.0-9.0); NEUT # 3.3 10*3/uL (2.3-7.9); NEUT % 70.3 % (47.0-73.0); PLATELET COUNT AUTOMATED 163 10*3/uL (130-400); RED BLOOD COUNT 4.63 10*6/uL (4.10-5.10); RED CELL DISTRI WIDTH 11.9 % (0-14.5); WHITE BLOOD COUNT 4.6 10*3/uL (4.8-10.8)
[2021-03-24 13:01] LABS: ALBUMIN 3.8 gm/dl (3.1-4.5); ALKALINE PHOSPHATASE 93 U/L (45-117); BUN 13 mg/dl (7-24); CHLORIDE 107 mmol/L (98-107); CREATININE 0.69 mg/dL (0.55-1.02); LIPASE 45 U/L (73-393); POTASSIUM 3.5 mmol/L (3.5-5.1); SGOT/AST 97 IU/L (3-35); SGPT/ALT 129 U/L (12-78); SODIUM 140 mmol/L (136-145); TOTAL PROTEIN 7.1 gm/dL (6.4-8.2)
[2021-03-24 13:09] LABS: BILIRUBIN Negative (Negative); BLOOD Negative (Negative); CLARITY Clear (Clear); COLOR Yellow (Yellow); GLUCOSE Negative (Negative); KETONE Negative (Negative); LEUKO ESTERASE Negative (Negative); NITRITE Negative (Negative); PH 6.5 (4.5-8.0); SPECIFIC GRAVITY <= 1.005 (1.001-1.030); UROBILINOGEN 0.2 E.U./dl (0.0-1.0)
[2021-03-24 13:15] LABS: RBC 0-2 rbc/hpf (0-2); WBC 0-2 wbc/hpf (0-5)
[2021-03-24] MEDS ORDERED: ZOFRAN4 MG PO (17:29)
== END 2021-03-24 17:37 | disposition home or self-care (01) ==
LOC: ED 11:03
PROVIDERS: Physician Assistant
DX: K52.9 Noninfective gastroenteritis and colitis, unspecified (principal); F17.200 Nicotine dependence, unspecified, uncomplicated; Z79.899 Other long term (current) drug therapy; Z90.89 Acquired absence of other organs; Z90.49 Acquired absence of other specified parts of digestive tract; Z90.710 Acquired absence of both cervix and uterus

== ENCOUNTER → 2021-04-30 | Outpatient (CLI) | payer OTHER ==
[~2021-04-30] MED LIST changes: +CETIRIZINE HYDR10 MG PO; +FLUTICASONE-SA1 EAC3 INH; +MELOXICAM15 MG PO; +MONTELUKAST SOD10 MG PO; +PANTOPRAZOLE SO40 MG PO; +VENT7GM INH
== END | disposition home or self-care (01) ==
LOC: RAD 11:33
PROVIDERS: ATTEND Internal Medicine
DX: M54.2 Cervicalgia (principal)

== ENCOUNTER → 2021-08-26 | Outpatient (CLI) | payer OTHER ==
[2021-08-26 11:56] LABS: TOTAL PROTEIN 6.9 gm/dL (6.4-8.2)
[2021-08-26 12:03] LABS: THYROID STIM HORMONE (HS) 3.3 uIU/ml (0.358-4.75)
== END | disposition home or self-care (01) ==
LOC: LAB 11:12
PROVIDERS: ATTEND Internal Medicine
DX: R74.8 Abnormal levels of other serum enzymes (principal); E03.9 Hypothyroidism, unspecified; E78.5 Hyperlipidemia, unspecified

== ENCOUNTER 2022-02-10 18:24 | Emergency (ER) | payer OTHER ==
[~2022-02-10] VITALS: Ht 170.1 cm; Wt 94.8 kg
[2022-02-10] MEDS ORDERED: FLUCONAZOLE100 MG PO (18:52)
[2022-02-10] MEDS ORDERED: AMOXICILLIN875 MG PO (18:52)
== END 2022-02-10 18:53 | disposition home or self-care (01) ==
LOC: ED 18:24
DX: K04.7 Periapical abscess without sinus (principal); Z79.899 Other long term (current) drug therapy; Z90.49 Acquired absence of other specified parts of digestive tract; Z90.89 Acquired absence of other organs; Z98.890 Other specified postprocedural states

== ENCOUNTER → 2022-03-22 | Outpatient (CLI) | payer OTHER ==
[~2022-03-22] MED LIST changes: +AMOXICILLIN875 MG PO; +FLUCONAZOLE100 MG PO
[2022-03-22 12:23] LABS: EOS # 0.1 10*3/uL (0.0-0.4); HEMATOCRIT 44.2 % (37.0-47.0); LYMPH # 1.5 10*3/uL (1.3-4.4); LYMPH % 38.1 % (27.0-41.0); MEAN CELL VOLUME 90.2 fl (81.0-99.0); MEAN CORPUSCULAR HGB CONC 34.4 g/dl (33.0-37.0); MEAN PLATELET VOLUME 8.8 fl (9.6-12.3); MONO # 0.3 10*3/uL (0.1-1.0); NEUT % 50.7 % (47.0-73.0); PLATELET COUNT AUTOMATED 211 10*3/uL (130-400); RED CELL DISTRI WIDTH 12.4 % (0-14.5)
[2022-03-22 12:40] LABS: ALKALINE PHOSPHATASE 61 U/L (46-116); BUN 15 mg/dl (9-23); CHLORIDE 104 mmol/L (98-107); CHOLESTEROL 170 mg/dL (<200); LDL CHOLESTEROL 56 mg/dL (9-159); POTASSIUM 3.7 mmol/L (3.4-5.1); SGPT/ALT 35 U/L (10-49); THYROID STIM HORMONE (HS) 2.045 uIU/ml (0.550-4.780); TRIGLYCERIDES 147 mg/dl (<150)
== END | disposition home or self-care (01) ==
LOC: LAB 12:05
PROVIDERS: ATTEND Internal Medicine
DX: R60.0 Localized edema (principal)

== ENCOUNTER 2022-07-11 12:57 | Emergency (ER) | payer OTHER ==
[~2022-07-11] VITALS: Ht 170.1 cm; Wt 99.8 kg
[2022-07-11 13:38] LABS: BILIRUBIN Negative (Negative); BLOOD Negative (Negative); CLARITY Clear (Clear); COLOR Yellow (Yellow); GLUCOSE Negative (Negative); KETONE Trace (Negative); LEUKO ESTERASE Negative (Negative); NITRITE Negative (Negative); SPECIFIC GRAVITY 1.025 (1.001-1.030)
[2022-07-11 13:47] LABS: PH 8.5 (4.5-8.0)
[2022-07-11 14:16] LABS: BASO % 0.3 % (0.0-1.0); HEMATOCRIT 42.3 % (37.0-47.0); LYMPH # 0.8 10*3/uL (1.3-4.4); LYMPH % 8.1 % (27.0-41.0); MEAN CELL VOLUME 92.4 fl (81.0-99.0); MEAN CORPUSCULAR HGB 31.4 pg (27.0-31.0); MONO # 0.5 10*3/uL (0.1-1.0); NEUT # 8.7 10*3/uL (2.3-7.9); NEUT % 86.3 % (47.0-73.0); PLATELET COUNT AUTOMATED 195 10*3/uL (130-400); RED BLOOD COUNT 4.58 10*6/uL (4.10-5.10); RED CELL DISTRI WIDTH 12.6 % (0-14.5); WHITE BLOOD COUNT 10.1 10*3/uL (4.8-10.8)
[2022-07-11 14:40] LABS: ALKALINE PHOSPHATASE 79 U/L (46-116); BUN 9 mg/dl (9-23); CHLORIDE 106 mmol/L (98-107); LIPASE 28 U/L (12-53); POTASSIUM 3.7 mmol/L (3.4-5.1); SGPT/ALT 24 U/L (10-49); TOTAL PROTEIN 7.1 gm/dL (6.0-8.0)
[2022-07-11] MEDS ORDERED: ONDANSETRON4 MG SL (16:19)
== END 2022-07-11 16:25 | disposition home or self-care (01) ==
LOC: ED 12:57
PROVIDERS: Nurse Practitioner Family
DX: S46.911A Strain of unspecified muscle, fascia and tendon at shoulder and upper arm level, right arm, initial encounter (principal); A08.4 Viral intestinal infection, unspecified; J45.909 Unspecified asthma, uncomplicated; F32.A Depression, unspecified; K21.9 Gastro-esophageal reflux disease without esophagitis; Z90.710 Acquired absence of both cervix and uterus; Z90.49 Acquired absence of other specified parts of digestive tract; Z90.89 Acquired absence of other organs; Z98.890 Other specified postprocedural states; X58.XXXA Exposure to other specified factors, initial encounter; Y93.89 Activity, other specified; Y92.89 Other specified places as the place of occurrence of the external cause; Y99.0 Civilian activity done for income or pay

== ENCOUNTER 2022-12-18 12:48 | Emergency (ER) | payer SELFPAY ==
[~2022-12-18] VITALS: Ht 167.6 cm; Wt 99.8 kg
[~2022-12-18 12:48] MED LIST changes: +ONDANSETRON4 MG SL
[2022-12-18] MEDS ORDERED: Synthroid,Levo25 MCG PO (13:53)
[2022-12-18] MEDS ORDERED: FLUONAZOLE150 M1 PO (15:05)
[2022-12-18] MEDS ORDERED: AMOX-CLAV 875-1 EACH PO (15:05)
== END 2022-12-18 15:42 | disposition home or self-care (01) ==
LOC: ED 12:48
DX: H72.91 Unspecified perforation of tympanic membrane, right ear (principal); J45.909 Unspecified asthma, uncomplicated; F32.A Depression, unspecified; K21.9 Gastro-esophageal reflux disease without esophagitis; Z88.8 Allergy status to other drugs, medicaments and biological substances; Z90.710 Acquired absence of both cervix and uterus; Z90.89 Acquired absence of other organs

== ENCOUNTER 2023-03-22 05:14 | Emergency (ER) | payer SELFPAY ==
[~2023-03-22 05:14] MED LIST changes: +AMOX-CLAV 875-1 EACH PO; +FLUONAZOLE150 M1 PO; +Synthroid,Levo25 MCG PO
[2023-03-22] MEDS ORDERED: Oseltamivir Phosphate 75 MG CAP PO ONE (06:25)
[2023-03-22] MEDS ORDERED: TAMIFLU 75MG CA75 MG PO (06:43)
== END 2023-03-22 08:12 | disposition home or self-care (01) ==
LOC: ED 05:14
DX: J10.1 Influenza due to other identified influenza virus with other respiratory manifestations (principal); Z20.822 Contact with and (suspected) exposure to COVID-19; R11.2 Nausea with vomiting, unspecified; Z88.8 Allergy status to other drugs, medicaments and biological substances; K21.9 Gastro-esophageal reflux disease without esophagitis; E78.00 Pure hypercholesterolemia, unspecified; R73.9 Hyperglycemia, unspecified; E03.9 Hypothyroidism, unspecified; J45.909 Unspecified asthma, uncomplicated; Z90.49 Acquired absence of other specified parts of digestive tract; Z90.89 Acquired absence of other organs; Z90.710 Acquired absence of both cervix and uterus; Z98.890 Other specified postprocedural states

== ENCOUNTER 2024-06-28 14:08 | Emergency (ER) | payer SELFPAY ==
[~2024-06-28] VITALS: Ht 167.6 cm; Wt 99.8 kg
[~2024-06-28 14:08] MED LIST changes: +TAMIFLU 75MG CA75 MG PO
[2024-06-28] MEDS ORDERED: AMOX-CLAV 875-1 EACH PO (15:15)
[2024-06-28] MEDS ORDERED: Amoxicillin/Clavulanate Pota 875 MG TAB PO ONE (15:15)
[2024-06-28] MEDS ORDERED: FLUONAZOLE150 M1 PO (15:15)
== END 2024-06-28 18:47 | disposition home or self-care (01) ==
LOC: ED 14:08
DX: H66.93 Otitis media, unspecified, bilateral (principal); J02.9 Acute pharyngitis, unspecified; R51.9 Headache, unspecified; R09.81 Nasal congestion; R11.0 Nausea; J45.909 Unspecified asthma, uncomplicated; K21.9 Gastro-esophageal reflux disease without esophagitis; Z88.8 Allergy status to other drugs, medicaments and biological substances; Z98.890 Other specified postprocedural states; Z90.49 Acquired absence of other specified parts of digestive tract; Z90.89 Acquired absence of other organs